=== PATIENT | male | born 1970 | race Two or more races ===

== ENCOUNTER 2020-03-04 10:45 | Emergency (ER) | payer OTHER ==
[~2020-03-04] VITALS: Ht 172.7 cm; Wt 106.1 kg
[2020-03-04] MEDS ORDERED: LORazepam 2 MG/ML, 1ML ONE ×2 (11:15→11:44)
[2020-03-04] MEDS: LORazepam 2 MG/ML, 1ML IVPush PRN ×4 (11:23→12:12)
[2020-03-04 11:26] LABS: BASOPHILS % (AUTO) 1 % (0-1); EOSINOPHILS % (AUTO) 2 % (1-7); LYMPHOCYTES % (AUTO) 32 % (22-44); MEAN CORPUSCULAR HEMOGLOBIN 33.5 pg (27.5-34.5); MEAN PLATELET VOLUME 8.4 fL (7.4-10.4); MONOCYTES % (AUTO) 15 % (2-9); NEUTROPHILS % (AUTO) 51 % (42-75); PLATELET COUNT 217 x10^3/uL (130-400); RED BLOOD COUNT 4.73 x10^6/uL (4.38-5.82); RED CELL DISTRIBUTION WIDTH 15.1 % (9.4-14.8)
[2020-03-04 11:30] LABS: MD NO
[2020-03-04] MEDS ORDERED: ONDANSETRON 2MG/ML, 2ML IVPush ONE (11:30)
[2020-03-04] MEDS ORDERED: SODIUM CHLORIDE 0.9% 1,000ML IVBOLUS ONE (11:30)
[2020-03-04] MEDS ORDERED: SODIUM CHLORIDE FLUSH 10ML SYR IVF ONE (11:30)
[2020-03-04] MEDS ORDERED: THIAMINE 100 MG in SODIUM CHLORIDE 0.9% 50 ML IVPB ONE (11:30)
[2020-03-04] MEDS ORDERED: SODIUM CHLORIDE 0.9% 1,000 ML IV ONE (11:30)
[2020-03-04 11:36] LABS: ANION GAP 11 mmol/L (5-15); CALCIUM 9.1 mg/dL (8.5-10.1); CHLORIDE 105 mmol/L (98-107); CREATININE 0.85 mg/dL (0.7-1.3)
[2020-03-04 11:37] LABS: ALANINE AMINOTRANSFERASE 347 U/L (12-78); ALBUMIN 4.7 g/dL (3.4-5.0)
[2020-03-04 11:38] LABS: ALKALINE PHOSPHATASE 85 U/L (45-117); BILIRUBIN,TOTAL 0.5 mg/dL (0.2-1.0); TOTAL PROTEIN 8.3 g/dL (6.4-8.2)
[2020-03-04] MEDS ORDERED: ONDANSETRON 2MG/ML, 2ML ONE (12:07)
[2020-03-04 13:41] VITALS: BP 134/65
== END 2020-03-04 13:43 | disposition home or self-care (01) ==
LOC: ED 11:56
DX: F10.129 Alcohol abuse with intoxication, unspecified (principal); R11.0 Nausea; R10.84 Generalized abdominal pain; Y90.9 Presence of alcohol in blood, level not specified
CPT/HCPCS: 36415; 80053; 80307; 83690; 85025; 93005; 96361; 96365; 96375; 96376; 99285; J2060; J2405; J3411; J7030

== ENCOUNTER 2020-07-19 12:33 | Emergency (ER) | payer BC ==
[~2020-07-19] VITALS: Ht 180.3 cm; Wt 103.6 kg
[2020-07-19] MEDS ORDERED: SODIUM CHLORIDE FLUSH 10ML SYR IVF ONE (13:30)
[2020-07-19] MEDS ORDERED: ONDANSETRON 2MG/ML, 2ML IVPush ONE (13:30)
[2020-07-19] MEDS ORDERED: SODIUM CHLORIDE 0.9% 1,000ML IVBOLUS ONE (13:30)
[2020-07-19] MEDS ORDERED: ONDANSETRON 2MG/ML, 2ML ONE (13:55)
[2020-07-19 13:56] LABS: BASOPHILS % (AUTO) 1 % (0-1); EOSINOPHILS % (AUTO) 0 % (1-7); LYMPHOCYTES % (AUTO) 24 % (22-44); MEAN CORPUSCULAR HEMOGLOBIN 33.7 pg (27.5-34.5); MEAN CORPUSCULAR HGB CONC 35.1 g/dL (33.2-36.2); MONOCYTES % (AUTO) 10 % (2-9); NEUTROPHILS % (AUTO) 65 % (42-75); PLATELET COUNT 177 x10^3/uL (130-400); RED BLOOD COUNT 5.28 x10^6/uL (4.38-5.82); RED CELL DISTRIBUTION WIDTH 13.6 % (9.4-14.8)
[2020-07-19] MEDS ORDERED: LORazepam 2 MG/ML, 1ML ONE ×2 (13:56→16:07)
[2020-07-19] MEDS: LORazepam 2 MG/ML, 1ML IVPush PRN ×2 (14:00→16:09)
[2020-07-19 14:02] LABS: MD NO
--- NOTE | 2020-07-19 14:04 | NUR ---
PT UPRIGHT ON GURNEY AWAKE & CALM, NAD/VSS, COMFORT MEASURES PROVIDED, CALL LIGHT WITHIN REACH.
[2020-07-19 14:10] LABS: ALANINE AMINOTRANSFERASE 175 U/L (12-78); ALBUMIN 4.7 g/dL (3.4-5.0); ANION GAP 15 mmol/L (5-15); CALCIUM 9.4 mg/dL (8.5-10.1); CHLORIDE 102 mmol/L (98-107); CREATININE 0.98 mg/dL (0.7-1.3); GAMMA GLUTAMYL TRANSPEPTIDASE 444 U/L (15-85)
[2020-07-19 14:11] LABS: ALKALINE PHOSPHATASE 91 U/L (45-117); BILIRUBIN,TOTAL 0.4 mg/dL (0.2-1.0); TOTAL PROTEIN 8.6 g/dL (6.4-8.2)
[2020-07-19] MEDS ORDERED: POTASSIUM CHLORIDE 20 MEQ TAB.ER.PRT PO ONE (15:00)
--- NOTE | 2020-07-19 15:00 | NUR ---
PT SITTING ON EOB CALMER AFTER ATIVAN, NAD/VSS, NO NEEDS AT THIS TIME, CALL LIGHT WITHIN REACH.
[2020-07-19 16:03] VITALS: BP 164/93
[2020-07-19] MEDS ORDERED: POTASSIUM CHLORIDE 20 MEQ TAB.ER.PRT ONE (16:03)
--- NOTE | 2020-07-19 16:03 | NUR ---
PT SITTING ON EOB, GIVEN ADDTL DOSE OF ATIVAN PER PT REQUEST, REPORTS FEELING CALMER AGAIN, NAD/VSS, NO NEEDS AT THIS TIME, AT BS, CALL LIGHT WITHIN REACH.
--- NOTE | 2020-07-19 16:59 | NUR ---
Patient & given discharge instructions and Rx, they have confirmed that they understand the instructions. Patient ambulatory with steady gait.
== END 2020-07-19 17:03 | disposition home or self-care (01) ==
LOC: ED 15:45
DX: F10.229 Alcohol dependence with intoxication, unspecified (principal); F41.1 Generalized anxiety disorder; R04.0 Epistaxis; E87.6 Hypokalemia; R00.0 Tachycardia, unspecified; R11.2 Nausea with vomiting, unspecified; Y90.0 Blood alcohol level of less than 20 mg/100 ml
CPT/HCPCS: 36415; 80053; 80320; 82977; 85025; 96361; 96374; 96375; 96376; 99284; J2060; J2405; J7030; G0480